=== PATIENT | male | born 1945 | race Caucasian/White ===

== ENCOUNTER → 2017-04-25 | Outpatient (CLI) | payer OTHER ==
[~2017-04-25] MED LIST: DENIES; PRED20TA PO
== END | disposition home or self-care (01) ==
LOC: C.LAB 11:08
PROVIDERS: ATTEND Urology
DX: R97.20 Elevated prostate specific antigen [PSA] (principal)

== ENCOUNTER 2019-06-13 07:21 | Inpatient (IN) ==
[2019-06-13] MEDS ORDERED: SODIUM CHLORIDE 0.9% 500 ML IV ONE (08:01)
[2019-06-13 08:39] LABS: Albumin Level 3.5 gm/dl (3.4-5.0); BUN Creatinine Ratio 19.3 (10-20); Calcium 8.9 mg/dl (8.5-10.1); Creatinine Clr Calc Pharmacy 80.1 ml/min; Est GFR (African American) 87.5; Est GFR (Non-African American) 75.5
[2019-06-13 08:42] LABS: Albumin Globulin Ratio 0.8 (0.9-2); Bilirubin,Total 0.9 mg/dl (0.2-1); Globulin 4.3 gm/dl (2.5-4.0); Total Protein 7.8 gm/dl (6.4-8.2)
[2019-06-13] MEDS ORDERED: IOVERSOL 100ml IV PRN (08:51)
--- NOTE | 2019-06-13 09:11 | CT Scan Report ---
CT soft tissue neck w con CT DOSE: 674.40 mGy.cm CLINICAL HISTORY: swelling TMJ R due to submental RIGHT-SIDED FACIAL SWELLING TECHNIQUE: Helical images were acquired during intravenous administration of 92 cc of Optiray 320. A dose lowering technique was utilized adhering to the principles of ALARA. COMPARISON STUDY: 09/19/2018 FINDINGS: The visualized portions of the lung apices are unremarkable. 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 The thyroid contains coarse calcificatio ns. There is only minimal right lobe thyroid tissue. Correlation with prior surgical history is advoc ated. No salivary gland masses are visualized. There are no pathologically enlarged cervical lymph nodes. No necrotic nodes are evident. There are no fluid collections suspicious for abscess. There is an element of narrowing of the oropharyngeal and supraglottic airway. There is mild edema within the uvula and epiglottis. There is diffuse retropharyngeal edema more pron ounced on the right. There is effacement of the right piriform sinus. Right-sided parapharyngeal brennon a extends superiorly to the level of the posterior tongue. IMPRESSION: 1. Apparent interval right lobe thyroidectomy 2. 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 Interval development of fracture pharyngeal and parapharyngeal edema extending to the level of the vocal cords to the base the tongue. In addition there is edema within the epiglottis and uvula. Ther e is effacement of the right piriform sinus, and secondary narrowing of the oropharyngeal and supragl ottic airway. No discrete abscess is visualized. Electronically signed by: Michael Michael M.D. 06/13/2019 9:10 AM
[2019-06-13 09:52] LABS: Agglutinated RBC 3+; Eosinophils # (auto) 0.22 K/uL (0-0.5); Eosinophils % (auto) 1.9 %; Hemoglobin 13.2 g/dL (14.0-18.0); Immature Granulocytes # (auto) 0.04 K/uL (0.00-0.02); Immature Granulocytes % (auto) 0.3 %; Lymphocytes # (auto) 1.72 K/uL (1.2-3.4); Lymphocytes % (auto) 14.6 %; Monocytes # (auto) 1.07 K/uL (0.11-0.59); Monocytes % (auto) 9.1 %; Neutrophils # (auto) 8.76 K/uL (1.4-6.5); Neutrophils % (auto) 74.1 %
[2019-06-13] MEDS ORDERED: DEXAMETHASONE SOD INJ 4 MG/ML VIAL IV STA (10:29)
[2019-06-13] MEDS ORDERED: AMPICILLIN/SULBACTAM SOD 3,000 MG in 0.9 % SODIUM CHLORIDE 100 ML IV STA (10:29)
[2019-06-13] MEDS ORDERED: CARBOHYDRATES FOR HYPOGLYCEMIA PO PRN (13:52)
[2019-06-13] MEDS ORDERED: MAGNESIUM HYDROXIDE SUSP 30 ML UDC PO PRN (13:52)
[2019-06-13] MEDS ORDERED: ACETAMINOPHEN 325 MG TAB PO PRN (13:52)
[2019-06-13] MEDS ORDERED: GLUCOSE 40% GEL 15 GM TUBE PO PRN (13:52)
[2019-06-13] MEDS ORDERED: ZOLPIDEM TARTRATE 5 MG TAB PO PRN (13:52)
[2019-06-13] MEDS ORDERED: DEXTROSE 50% 50 ML SYRINGE IV PRN (13:52)
[2019-06-13] MEDS ORDERED: GLUCOSE 10 TABS/TUBE PO PRN (13:52)
[2019-06-13] MEDS ORDERED: GLUCAGON FOR INJ 1 MG VIAL SQ PRN (13:52)
[2019-06-13] MEDS ORDERED: ALUMINUM/MAGNESIUM SUSP 30 ML UDC PO PRN (13:52)
[2019-06-13] MEDS ORDERED: ONDANSETRON INJ 2 MG/ML 2 ML VIAL IV PRN (13:52)
[2019-06-13] MEDS ORDERED: PIPERACILL/TAZOBAC CONSULT ACTIVE PRN (13:58)
--- NOTE | 2019-06-13 14:08 | History & Physical Report ---
Date of Service June 13, 2019 Assessment & Plan (1) Pharyngeal edema: Secondary to acute onset pharyngitis, without significant compromise to airway Dysphagia but no shortness of breath or difficulty breathing Able to swallow his saliva Admit to telemetry ENT consult appreciated, Dr. Gonzalez recommended Decadron IV, started 10 mg IV every 6 hours, also recommended Unasyn, unfortunately it is on the back ordered, so patient received Zosyn 3.25 gram IV every 6 hours Check blood culture, pharyngeal culture, antistreptolysin O, pro calcitonin Added lactobacillus to prevent C. difficile Added sliding scale insulin due to the large dose of steroids Added Protonix oral for GI prophylaxis Heparin subcu for DVT prophylaxis (2) Dysphasia: Keep n.p.o. for now (3) Essential hypertension: Continue blood pressure meds (4) Dyslipidemia: Continue statin (5) History of thyroid cancer: Status post removal of right lobe of thyroid about 3 months ago Continue Synthroid (6) Elevated PSA: Patient is aware and following up with his urologist Level has been mildly elevated, prostate biopsy was negative History of Present Illness Chief Complaint: Sore throat Primary Care Provider: Talita Liu DO 74 years old man with past medical history of essential hypertension, dyslipidemia and micro cancer and thyroid is status post right thyroid lobe thyroidectomy also has baseline mildly elevated PSA. Presented to the hospital with 3 days history of sore throat and some difficulty swallowing. Patient stated he has pain on the right side of his neck worsened by swallowing. Also had mild fever at home. In ED patient did have a CT scan that showed Interval development of fracture pharyngeal and parapharyngeal edema extending to the level of the vocal cords to the base the tongue. In addition there is edema within the epiglottis and uvula. There is effacement of the right piriform sinus, and secondary narrowing of the oropharyngeal and supraglottic airway. No discrete abscess is visualized. Patient will be admitted for further evaluation. Currently has no shortness of breath, protecting his airway well. Allergies Allergy/AdvReac Type Severity Reaction Status Date / Time [id number] Allergy Mild Uncoded 01/03/08 12:25 Home Medications Home Medications Medication Instructions Recorded Confirmed Type amlodipine 5 mg tablet 5 mg PO HS 03/29/19 06/13/19 History atorvastatin 20 mg tablet 20 mg PO HS 03/29/19 06/13/19 History levothyroxine 125 mcg tablet 125 mcg PO DAILY 03/29/19 06/13/19 History ascorbic acid (vitamin C) 500 mg PO BID 06/13/19 06/13/19 History calcium carbonate-vitamin D3 1 tab PO TID 06/13/19 06/13/19 History [Calcium 500 + D] cranberry 0 mg PO DAILY 06/13/19 06/13/19 History isknsabfneyn-kemeqlpg-duzwwb 1 tab PO HS 06/13/19 06/13/19 History [Multivitamin 50 Plus] [id number]-fish oil [Fish 1 cap PO DAILY 06/13/19 06/13/19 History Oil] Past Med/Surg History Medical History HLD (hyperlipidemia) Hypertension Hypothyroidism Family History Other Family history non-contributory Social History Preferred Language: Sinhala Communication Ability: Effective Critical Care Clinical Nurse Specialist Required: No Beliefs That Will Affect Care: None Current Living Situation: Spouse Other Information That Helps Us Care for You: No Feels Safe at Home: Yes Safety Concerns: Feels Safe At This Time Smoking Status: Former smoker Hx Alcohol Use: No Hx Substance Use: No Review of Systems Review of Systems: Review of system Constitutional: Positive for mild fever / no chills / no sweats / no weakness / no fatigue Eyes: no blurring of vision / no eye pain / no discharge / no redness ENT: Sore throat and pain in the right side of the neck Respiratory: no cough / no wheezing / no SOB / no hemoptysis Cardiovascular: no Chest pain / no lower extremity edema / no palpitation Abdomen: no pain / no nausea / no vomiting / no constipation Musculoskeletal: no joint pain / no muscle pain / no joint swelling Genitourinary: no dysuria / no incontinence / no urinary retention Neurologic: no focal weakness / no numbness/tingling / no ataxia Psychiatric: no depression symptoms / no anxiety / no insomnia Endocrine: no excessive thirst / no excessive urination Hematologic: no abnormal bleeding / no bruising / no LN swelling Skin: No rash / no pallor Physical Exam Physical Exam: Physical examination General patient appears to be comfortable, not in acute distress HEENT: Atraumatic , normocephalic /no jaundice /no pallor /anicteric /no dry mucous membrane /normal external ear inspection Neck: Tenderness on the right side of the neck and slight swelling, pharynx appears to be erythematous and swollen on the right side Heart: S1/S2 normal/regular rate and rhythm/no gallop /no rub /no murmur Lungs: Clear to auscultation bilaterally/normal chest with expansion/no rhonchi/no rales/no wheezing/no use of accessory muscles of respiration Abdomen: Soft/nontender/no guarding/no rebound/no organomegaly/no pulsatile mass Musculoskeletal: No swelling/no edema/no tenderness/normal range of motion Neuro exam: Awake alert oriented 3/cranial nerves II through XII appear to be intact/sensation intact/moves all extremities/no abnormal movements Psychiatric evaluation: No depressed mood/normal affect Skin: No rash on exposed skin area/no erythema Extremity: Normal pulse/no pitting edema/no clubbing or cyanosis Endocrine/lymphatic: No obvious lymphadenopathy /no lymphedema Results & Data Vital Signs (Past 12 Hours) Vital Signs Temp Pulse Pulse Resp BP BP Pulse Ox 06/13/19 13:00 72 20 111/62 96 06/13/19 12:00 72 18 126/55 L 96 06/13/19 11:00 82 18 131/79 95 06/13/19 10:00 72 18 118/65 95 06/13/19 09:00 71 18 131/76 97 06/13/19 07:27 36.8 C 88 18 139/91 97 Code Status & VTE Plan Code Status Based on discussion with patient he is full code VTE Prophylaxis Plan VTE Prophylaxis will be ordered: Yes PG Care Time/CCT Total # of Minutes Spent Total Time Spent with Patient: 35 minutes total time spent is greater than 50% in coordination of care (as documented) at patient's floor/unit and/or counseling patient/family discussion of care with nursing staff
[2019-06-13 14:53] LABS: Platelet Count 199 K/uL (130-400)
[2019-06-13 14:54] LABS: White Blood Count 11.81 K/uL (4.8-10.8)
[2019-06-13] MEDS ORDERED: INFLUENZA Vaccine HIGH DOSE 65+yrs 0.5 mL Syr IM ONE (15:00)
--- NOTE | 2019-06-13 15:08 | Consultation Report ---
DATE OF CONSULTATION: 06/13/2019 OTOLARYNGOLOGY, HEAD AND NECK SURGERY EMERGENCY ROOM CONSULTATION I have been asked by Dr. Cris Geller in the Emergency Room to evaluate this patient with parapharyngeal space infection. HISTORY OF PRESENT ILLNESS: The patient is a 74-year-old male with a several-day history of right-sided sore throat, which rapidly progressed and he developed right-sided facial and neck swelling, which prompted him to come to the Emergency Room today. He has a history of left thyroid lobectomy by at a [facility] photography assistant in 2011 and a subsequent right thyroid lobectomy by Dr. 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 The patient did well from that surgery and did not have any problems with his voice according to the patient's report. He denies any dental pain. He denies any referred otalgia. He does have some mild odynophagia and dysphagia, which has improved since he has gotten some IV steroids and antibiotics. He is afebrile. Blood was drawn, but the white blood cell count is still pending for some reason. He had a CT scan of the neck with IV contrast, which I reviewed and it shows residual left thyroid tissue that has substernal extension and displacement of the trachea to the right hand side. There is no right thyroid lobe. He has ehly-ab-ohotfdcw edema involving the right parapharyngeal space at the region of the oropharynx and extending to the hypopharynx. His uvula, right lateral pharyngeal wall, right side of the epiglottis and aryepiglottic fold, and right piriform sinus are all edematous. There is no discrete abscess. The edema seems to be somewhat watery. There is no neck lymphadenopathy. His glottic airway is widely patent. ALLERGIES: No known drug allergies. HOME MEDICATIONS: Include levothyroxine, Os-Anibal D, [place]-3 fatty acids, multivitamin, cranberry tablets, atorvastatin, vitamin C, and amlodipine. PAST MEDICAL HISTORY: Dyslipidemia, hypertension, postoperative hypothyroidism, postoperative hypocalcemia, arthritis. PAST SURGICAL HISTORY: As above as well as status post appendectomy. FAMILY HISTORY: Noncontributory. No bleeding disorders or malignant hyperthermia. SOCIAL HISTORY: The patient has a 5-pack-year smoking history but quit in 1968. He denies any alcohol abuse or illicit drug use. REVIEW OF SYSTEMS: The patient has some mild odynophagia and dysphagia. He has perhaps a mild change in his voice. He denies any referred otalgia. He denies any lightheadedness, shortness of breath, or chest pain. PHYSICAL EXAMINATION: GENERAL: This is an elderly white male in no acute distress with no stertor or stridor. He does have a mild hoarse voice. VITAL SIGNS: His temperature is 36.8 degrees Celsius. Oxygen saturation is 96% on room air. Respiratory rate is 18. Blood pressure is 115/88 and pulse is 79. ENT: Bilateral external auditory canals and tympanic membranes are clear. Nasal examination reveals a severe septal deviation to the left and right greater than left inferior turbinate hypertrophy. Oral cavity and oropharyngeal examination reveals no evidence of trismus. He has no pain to palpation of the maxillary or mandibular dentition on the right. He does have some mild uvular swelling as well as lateral pharyngeal wall swelling with no mucosal lesion or mass. He has no trismus. He has some poor remaining dentition but once again there is no tenderness to palpation of any of the dentition, and his gingival surfaces are normal. NECK: Examination reveals a hypertrophic thickened scar involving the neck at his previous thyroidectomy site. He does have some swelling superior to this incision that is primarily based on the right hand side and extends to the right parotid region. There is no overlying erythema, warmth, or fluctuance. He has no tenderness to palpation along the swelling. After the administration of topical lidocaine and Afrin to the right nasal cavity, flexible nasopharyngolaryngoscopy was performed, which reveals very mild edema involving the right lateral pharyngeal wall and extending down to the piriform sinus and aryepiglottic fold region. He has normal bilateral true vocal fold mobility to the midline with no mucosal lesions or masses. There is no pooling of secretions within the piriform sinuses. IMPRESSION AND RECOMMENDATIONS: A 74-year-old male with acute pharyngitis with parapharyngeal space edema but no evidence of abscess, phlegmon, or malignancy. Recommend IV antibiotics consisting of Unasyn 3 grams IV q.6 and Decadron 10 mg IV q.8 hours while he is hospitalized. He can then be discharged to home on Augmentin and an appropriate prednisone taper. Since there is no drainable abscess, I will sign off on this consultation, but if you need any further assistance with this patient, please do not hesitate to contact me.
[2019-06-13] MEDS ORDERED: PIPERACILLIN/TAZOBACTAM 3.375 GM in DEXTROSE 5% 100 ML IV ONE (15:15)
[2019-06-13] MEDS: NSS + 20MEQ KCL 20 MEQ/1,000 ML BAG IV SCH (16:10)
[2019-06-13] MEDS: DEXAMETHASONE SOD PHOSPHATE 10 MG in SYRINGE 0 ML IV SCH ×2 (16:10→21:05)
[2019-06-13] MEDS: PANTOprazole 40 MG TAB PO SCH (16:12)
[2019-06-13] MEDS: LACTOBACILLUS ACIDOPHILUS 1 GM PACK PO SCH (16:12)
[2019-06-13] MEDS: INSULIN ASPART 100 UNITS/ML 3 ML PEN SC SCH ×2 (18:13→21:20)
[2019-06-13] MEDS ORDERED: PIPERACILLIN/TAZOBACTAM 3.375 GM in DEXTROSE 5% 100 ML IV SCH (20:00)
[2019-06-13] MEDS ORDERED: ATORVASTATIN 20 MG TAB PO SCH (21:00)
[2019-06-13] MEDS ORDERED: AMLODIPINE BESYLATE 5 MG TAB PO SCH (21:00)
[2019-06-13] MEDS: AMPICILLIN/SULBACTAM SOD 3,000 MG in 0.9 % SODIUM CHLORIDE 100 ML IV SCH (21:01)
[2019-06-13] MEDS: HEPARIN SOD 5,000 UNIT/0.5 ML VIAL SQ SCH (21:05)
[2019-06-14] MEDS: AMPICILLIN/SULBACTAM SOD 3,000 MG in 0.9 % SODIUM CHLORIDE 100 ML IV SCH ×3 (02:11→14:57)
[2019-06-14] MEDS: DEXAMETHASONE SOD PHOSPHATE 10 MG in SYRINGE 0 ML IV SCH ×2 (02:55→12:12)
[2019-06-14] MEDS ORDERED: LEVOTHYROXINE SODIUM 125 MCG TABLET PO SCH (06:30)
[2019-06-14] MEDS: NSS + 20MEQ KCL 20 MEQ/1,000 ML BAG IV SCH (08:29)
[2019-06-14] MEDS: HEPARIN SOD 5,000 UNIT/0.5 ML VIAL SQ SCH (08:35)
[2019-06-14] MEDS: LACTOBACILLUS ACIDOPHILUS 1 GM PACK PO SCH ×2 (08:36→12:18)
[2019-06-14] MEDS: PANTOprazole 40 MG TAB PO SCH (08:36)
[2019-06-14] MEDS: INSULIN ASPART 100 UNITS/ML 3 ML PEN SC SCH ×2 (08:37→12:19)
[2019-06-14 15:49] VITALS: BP 142/82; TEMP 98.1; O2SAT 97
[2019-06-14 17:14] VITALS: PULSE 92
--- NOTE | 2019-06-15 22:24 | Emergency Department Note ---
Entered by Juan Lozano acting as a scribe for History of Present Illness General Chief complaint: Sore Throat Stated complaint: SWOLLEN,SORE THROAT,MOVED TO JAW/EAR,HARD TO TALK Time Seen by Provider: 06/13/19 07:42 Source: patient History of Present Illness Provider complaint: Sore throat Onset (ago): day(s) 3 Location: neck Pain Consistency: + constant Maximum Pain Intensity: 5 Current Pain Intensity: 5 Relieved By: + none Exacerbated By: + other (Closing mouth, swallowing) Associated symptoms: + other (Swelling); no fever/chills and no nausea/vomiting The patient is a 74 year old male who presents to the Emergency Room with complaints of a constant right sided sore throat that started 3 days ago. The patient rates his pain as a 5/10 and notes it hurts worse to swallow. The patient states that he has sinus congestion as well that he feels dripping down his throat. The patient reports that the day after his sore throat started he developed right sided jaw pain that tracks up to his right ear. The patient notes this pain is worse when he closes his mouth. The patient adds that he has had intermittent swelling of the right side of his neck and this morning he had swelling to the roof of his mouth and his tongue which impaired his speech. The patient mentioned that he had the right side of this thyroid removed in December. The patient denies any fevers, nausea, vomiting, or visual changes. The patient does admit to a remote smoking history. No recent dental procedures or infections. No recent sinus infections. Pt states swelling has improved slightly since earlier this am. No hx of salivary stones. Home Medications Home Medications Medication Instructions Recorded Confirmed Type amlodipine 5 mg tablet 5 mg PO HS 03/29/19 06/13/19 History atorvastatin 20 mg tablet 20 mg PO HS 03/29/19 06/13/19 History levothyroxine 125 mcg tablet 125 mcg PO DAILY 03/29/19 06/13/19 History Fish Oil 1 cap PO DAILY 06/13/19 06/13/19 History Multivitamin 50 Plus 1 tab PO HS 06/13/19 06/13/19 History ascorbic acid (vitamin C) 500 mg PO BID 06/13/19 06/13/19 History calcium carbonate-vitamin D3 1 tab PO TID 06/13/19 06/13/19 History [Calcium 500 + D] cranberry 0 mg PO DAILY 06/13/19 06/13/19 History Lactobacillus acidoph-L.bulgar 1 pkt PO TIDM 6 Days #12 ea 06/14/19 Rx [Floranex] amoxicillin-pot clavulanate 1 tab PO BID 6 Days #12 tab 06/14/19 Rx [Augmentin] prednisone See Rx Instructions .ROUTE 06/14/19 Rx .COMPLEX #18 tab Allergies Allergy/AdvReac Type Severity Reaction Status Date / Time [id number] Allergy Mild Uncoded 01/03/08 12:25 Past Med/Surg History Medical History HLD (hyperlipidemia) Hypertension Hypothyroidism Family History Other Family history non-contributory Social History Preferred Language: Turkmen Communication Ability: Effective Die Engraver Required: No Beliefs That Will Affect Care: None Current Living Situation: Spouse Feels Safe at Home: Yes Smoking Status: Former smoker Hx Alcohol Use: No Hx Substance Use: No Review of Systems See HPI for pertinent positives & negatives. and A total of 10 systems reviewed and were otherwise negative Physical Exam Vital Signs Vital Signs - 24 hr 06/13/19 07:27 06/13/19 09:00 06/13/19 10:00 Temperature 98.2 F Temperature Source Oral Pulse Rate 88 Pulse Rate [Apical] 71 72 Pulse Rhythm [Apical] Regular Regular Pulse Strength [Apical] Normal Respiratory Rate 18 18 18 Respiratory Effort / Characteristics Non-Labored Spontaneous Non-Labored Spontaneous Non-Labored Spontaneous Respiratory Depth Normal Normal Normal Respiratory Pattern Regular Regular Blood Pressure 139/91 Blood Pressure [Left Arm] 131/76 118/65 Blood Pressure Mean 107 Blood Pressure Mean [Left Arm] 94 82 Blood Pressure Position Sitting Pulse Oximetry 97 97 95 Oxygen Delivery Method Room Air Room Air Room Air Sepsis Recent Fever Within 48 Hours No Sepsis Action Taken by Nursing No Action Required 06/13/19 11:00 Temperature Temperature Source Pulse Rate Pulse Rate [Apical] 82 Pulse Rhythm [Apical] Regular Pulse Strength [Apical] Respiratory Rate 18 Respiratory Effort / Characteristics Non-Labored Spontaneous Respiratory Depth Normal Respiratory Pattern Regular Blood Pressure Blood Pressure [Left Arm] 131/79 Blood Pressure Mean Blood Pressure Mean [Left Arm] 96 Blood Pressure Position Pulse Oximetry 95 Oxygen Delivery Method Room Air Sepsis Recent Fever Within 48 Hours Sepsis Action Taken by Nursing GENERAL: alert, well appearing, well nourished, no distress, non-toxic HEAD: mild edema noted along right mandible and angle of mandible, no preauricular tenderness or edema EYE EXAM: normal conjunctiva, PERRL and EOM's grossly intact OROPHARYNX: Dry mucous membranes. Foul breath noted. Uvula is midline. Pain with palpation to the right TMJ. Mild fullness of the right face area around parotid gland. Edema to the right buccal mucosa. No fluctuance along gum line. No trismus. NECK: supple, no nuchal rigidity, no adenopathy, non-tender, no evidence of Ludwigs, no stridor. Well healed horizontal incision from thyroidectomy. LUNGS: Clear to auscultation. Normal chest wall mechanics, no w/r/r HEART: no murmurs, S1 normal and S2 normal ABDOMEN: abdomen soft, non-tender, normo-active bowel sounds, no masses, no rebound or guarding. BACK: Back is symmetrical on inspection and there is no deformity, no midline tenderness, no CVA tenderness. SKIN: no rashes and no bruising UPPER EXTREMITIES: upper extremities are grossly normal. FROM, nml pulses b/l. LOWER EXTREMITIES: No pitting edema. FROM, nml pulses b/l. NEURO EXAM: Normal sensorium, cranial nerves II-XII grossly intact, normal speech, no gross weakness of arms, no gross weakness of legs. Course Course 0753: Past medical records reviewed. The patient was evaluated in room B07, and a complete history and physical examination were performed. 1015: I reviewed the CT imaging with radiology. 1024: I updated the patient on the CT results. ENT has been paged. VS stable. Pt denies difficulty breathing or swallowing. STates still pain with swallowing. 1027: I spoke to Dr. Carlos SAUCEDO about the patient's case. He recommended starting Unasyn and 10mg of Decadron. He also suggested having him stay in the hospital for observation and IV antibiotics. 1038: I updated the patient on the discussion I had with ENT and the treatment plan that was formed. He is agreeable with the plan. 1055: I discussed the patient's case with Alanna Medina MARIA who is working under Dr. Nghia Bajwa. They agreed to accept the patient for further evaluation. 1133: The behavioral health case manager discovered that the patient has [facility] insurance so they cannot be admitted under the [facility]. The [facility] Hospitalist service has been paged. 1205: I spoke to Dr. Matt Sun [facility] about the patient's case. He is going to accept the patient for further evaluation. Consultations Consultation #1: I spoke to Dr. Carlos SAUCEDO about the patient's case. He recommended starting Unasyn and 10mg of Decadron. He also suggested having him stay in the hospital for observation and IV antibiotics. Time: 10:27 Consultation #2: I discussed the patient's case with Alanna SIFUENTES who is working under Dr. Nghia Bajwa. They agreed to accept the patient for further evaluation. Time: 10:55 Consultation #3: I spoke to Dr. Matt Sun [facility] about the patient's case. He is going to accept the patient for further evaluation. Time: 12:05 Administered Medications Discontinued Medications Amlodipine Besylate (Norvasc) 5 mg PO HS JACINDA Stop: 07/13/19 20:59 Last Admin: 06/13/19 21:05 Dose: 5 mg Documented by: [id number] Atorvastatin Calcium (Lipitor) 20 mg PO HS JACINDA Stop: 07/13/19 20:59 Last Admin: 06/13/19 21:05 Dose: 20 mg Documented by: [id number] Dexamethasone (Decadron) 10 mg IV NOW STA Stop: 06/13/19 10:30 Last Admin: 06/13/19 11:09 Dose: 10 mg Documented by: [id number] Heparin Sodium (Porcine) (Heparin Sodium (Porcine)) 5,000 units SQ Q12 JACINDA Stop: 07/13/19 20:59 Last Admin: 06/14/19 08:35 Dose: 5,000 units Documented by: [id number] Cosigned by: [id number] Admin: 06/13/19 21:05 Dose: 5,000 units Documented by: [id number] Cosigned by: [id number] Sodium Chloride (Nss) 500 mls @ 999 mls/hr IV .Q31M ONE Stop: 06/13/19 08:31 Last Infusion: 06/13/19 09:00 Dose: 0 mls/hr Documented by: [id number] Admin: 06/13/19 08:17 Dose: 999 mls/hr Documented by: [id number] Ampicillin Sodium/Sulbactam Sodium 3,000 mg/ Sodium Chloride 108 mls @ 200 mls/hr IV NOW STA; Protocol Stop: 06/13/19 11:01 Last Infusion: 06/13/19 11:43 Dose: 0 mls/hr Documented by: [id number] Admin: 06/13/19 11:10 Dose: 200 mls/hr Documented by: [id number] Dexamethasone Sodium Phosphate (10 mg/ Syringe) 2.5 mls @ 1 mls/min IV Q6H JACINDA Stop: 07/13/19 15:59 Last Admin: 06/14/19 12:12 Dose: 1 mls/min Documented by: [id number] Admin: 06/14/19 02:55 Dose: 1 mls/min Documented by: [id number] Admin: 06/13/19 21:05 Dose: 1 mls/min Documented by: [id number] Admin: 06/13/19 16:10 Dose: 1 mls/min Documented by: [id number] Potassium Chloride/Sodium Chloride (Normal Saline W/20 Meq Kcl) 20 meq in 1,000 mls @ 60 mls/hr IV .[id number] [facility] Stop: 07/13/19 15:29 Last Infusion: 06/14/19 15:08 Dose: 0 mls/hr Documented by: [id number] Admin: 06/14/19 08:29 Dose: 60 mls/hr Documented by: [id number] Infusion: 06/14/19 08:29 Dose: 60 mls/hr Documented by: [id number] Admin: 06/13/19 16:10 Dose: 60 mls/hr Documented by: [id number] Piperacillin Sod/Tazobactam (Sod 3.375 gm/ Dextrose) 115 mls @ 230 mls/hr IV NOW ONE; Protocol Stop: 06/13/19 15:44 Last Infusion: 06/13/19 16:41 Dose: 0 mls/hr Documented by: [id number] Admin: 06/13/19 16:11 Dose: 230 mls/hr Documented by: [id number] Ampicillin Sodium/Sulbactam Sodium 3,000 mg/ Sodium Chloride 108 mls @ 200 mls/hr IV Q6H JACINDA; Protocol Stop: 06/20/19 19:59 Last Infusion: 06/14/19 15:42 Dose: 0 mls/hr Documented by: [id number] Admin: 06/14/19 14:57 Dose: 200 mls/hr Documented by: [id number] Infusion: 06/14/19 09:08 Dose: 0 mls/hr Documented by: [id number] Admin: 06/14/19 08:35 Dose: 200 mls/hr Documented by: [id number] Infusion: 06/14/19 02:51 Dose: 0 mls/hr Documented by: [id number] Admin: 06/14/19 02:11 Dose: 200 mls/hr Documented by: [id number] Infusion: 06/13/19 21:34 Dose: 0 mls/hr Documented by: [id number] Admin: 06/13/19 21:01 Dose: 200 mls/hr Documented by: [id number] Influenza Virus Vaccine (Fluzone High-Dose Pf) 0.5 ml IM .ONCE ONE Stop: 06/13/19 15:01 Last Admin: 06/14/19 14:56 Dose: 0.5 ml Documented by: [id number] Insulin Aspart (Novolog Flexpen) 0 units SC ACHS JACINDA Stop: 07/13/19 16:29 Last Admin: 06/14/19 12:19 Dose: Not Given Documented by: [id number] Admin: 06/14/19 08:37 Dose: Not Given Documented by: [id number] Cosigned by: [id number] Admin: 06/13/19 21:20 Dose: Not Given Documented by: [id number] Cosigned by: [id number] Admin: 06/13/19 18:13 Dose: Not Given Documented by: [id number] Ioversol (Optiray 320 100ml) 92 ml IV ONCE PRN PRN Reason: Interaction Checking Stop: 06/17/19 08:50 Last Admin: 06/13/19 08:52 Dose: 92 ml Documented by: [id number] Lactobacillus Acidophilus (Floranex Granules/Powder Packet) 1 gm PO TIDM JACINDA Stop: 07/13/19 16:59 Last Admin: 06/14/19 12:18 Dose: 1 gm Documented by: [id number] Admin: 06/14/19 08:36 Dose: 1 gm Documented by: [id number] Admin: 06/13/19 16:12 Dose: 1 gm Documented by: [id number] Levothyroxine Sodium (Synthroid) 125 mcg PO DAILYBB [facility] Stop: 07/14/19 06:29 Last Admin: 06/14/19 06:31 Dose: 125 mcg Documented by: [id number] Pantoprazole Sodium (Protonix) 40 mg PO DAILY [facility] Stop: 07/13/19 13:59 Last Admin: 06/14/19 08:36 Dose: 40 mg Documented by: [id number] Admin: 06/13/19 16:12 Dose: 40 mg Documented by: [id number] Medical Decision Making Differential Diagnosis Differential diagnosis includes etiologies such as viral syndrome, tonsillitis, streptococcal pharyngitis, mononucleosis, peritonsillar abscess, retropharyngeal abscess, otitis, pneumonia, influenza, as well as others were entertained. Medical Records Attestation: I reviewed the patient's medical records. Home Medications Current Medication List: was personally reviewed by me Laboratory Data Attestation: I reviewed the patient's lab results. Result diagrams: 06/13/19 08:07 06/13/19 08:07 Lab Results 06/13/19 06/13/19 06/13/19 Range/Units 08:07 08:07 11:17 WBC 11.81 H (4.8-10.8) K/uL RBC TNP Hgb 13.2 L (14.0-18.0) g/dL Hct TNP MCV TNP MCH TNP MCHC TNP Plt Count 199 (130-400) K/uL Immature Gran % (Auto) 0.3 % Neut % (Auto) 74.1 % Lymph % (Auto) 14.6 % [place] % (Auto) 9.1 % Eos % (Auto) 1.9 % Baso % (Auto) 0.0 % Immature Gran # (Auto) 0.04 H (0.00-0.02) K/uL Neut # (Auto) 8.76 H (1.4-6.5) K/uL Lymph # (Auto) 1.72 (1.2-3.4) K/uL [place] # (Auto) 1.07 H (0.11-0.59) K/uL Eos # (Auto) 0.22 (0-0.5) K/uL Baso # (Auto) 0.00 (0-0.2) K/uL RBC Agglutinates 3+ Sodium 140 (136-145) mmol/L Potassium 4.0 (3.5-5.1) mmol/L Chloride 109 H (98-107) mmol/L Carbon Dioxide 25 (21-32) mmol/L Anion Gap 6.0 (3-11) BUN 19 H (7-18) mg/dl Creatinine 0.97 (0.6-1.4) mg/dl Est Cr Clr Drug Dosing 80.1 ml/min Est GFR ( Amer) 87.5 Est GFR (Non-Af Amer) 75.5 BUN/Creatinine Ratio 19.3 (10-20) Glucose 117 H (70-99) mg/dl Lactate (0.4-2.0) mmol/L Calcium 8.9 (8.5-10.1) mg/dl Total Bilirubin 0.9 (0.2-1) mg/dl AST 13 L (15-37) U/L ALT 19 (12-78) U/L Alkaline Phosphatase 71 (45-117) U/L Total Protein 7.8 (6.4-8.2) gm/dl Albumin 3.5 (3.4-5.0) gm/dl Globulin 4.3 H (2.5-4.0) gm/dl Albumin/Globulin Ratio 0.8 L (0.9-2) Procalcitonin < 0.05 (0-0.5) ng/ml TSH (0.300-4.500) uIu/ml Anti-Streptolysin Scrn (<200 IU/ml) IU/ml 06/13/19 06/13/19 06/13/19 Range/Units 11:17 11:17 11:17 WBC (4.8-10.8) K/uL RBC Hgb (14.0-18.0) g/dL Hct MCV MCH MCHC Plt Count (130-400) K/uL Immature Gran % (Auto) % Neut % (Auto) % Lymph % (Auto) % [place] % (Auto) % Eos % (Auto) % Baso % (Auto) % Immature Gran # (Auto) (0.00-0.02) K/uL Neut # (Auto) (1.4-6.5) K/uL Lymph # (Auto) (1.2-3.4) K/uL [place] # (Auto) (0.11-0.59) K/uL Eos # (Auto) (0-0.5) K/uL Baso # (Auto) (0-0.2) K/uL RBC Agglutinates Sodium (136-145) mmol/L Potassium (3.5-5.1) mmol/L Chloride (98-107) mmol/L Carbon Dioxide (21-32) mmol/L Anion Gap (3-11) BUN (7-18) mg/dl Creatinine (0.6-1.4) mg/dl Est Cr Clr Drug Dosing ml/min Est GFR ( Amer) Est GFR (Non-Af Amer) BUN/Creatinine Ratio (10-20) Glucose (70-99) mg/dl Lactate 1.0 (0.4-2.0) mmol/L Calcium (8.5-10.1) mg/dl Total Bilirubin (0.2-1) mg/dl AST (15-37) U/L ALT (12-78) U/L Alkaline Phosphatase (45-117) U/L Total Protein (6.4-8.2) gm/dl Albumin (3.4-5.0) gm/dl Globulin (2.5-4.0) gm/dl Albumin/Globulin Ratio (0.9-2) Procalcitonin (0-0.5) ng/ml TSH 0.483 (0.300-4.500) uIu/ml Anti-Streptolysin Scrn <200 IU/ml (<200 IU/ml) IU/ml Imaging Data Radiologist's Impression: Radiology results as stated below per my review and the radiologist's interpretation: CT soft tissue neck w con CT DOSE: 674.40 mGy.cm CLINICAL HISTORY: swelling TMJ R due to submental RIGHT-SIDED FACIAL SWELLING TECHNIQUE: Helical images were acquired during intravenous administration of 92 cc of Optiray 320. A dose lowering technique was utilized adhering to the principles of ALARA. COMPARISON STUDY: 09/19/2018 FINDINGS: The visualized portions of the lung apices are unremarkable. 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 The thyroid contains coarse calcifications. There is only minimal right lobe thyroid tissue. Correlation with prior surgical history is advocated. No salivary gland masses are visualized. There are no pathologically enlarged cervical lymph nodes. No necrotic nodes are evident. There are no fluid collections suspicious for abscess. There is an element of narrowing of the oropharyngeal and supraglottic airway. There is mild edema within the uvula and epiglottis. There is diffuse retropharyngeal edema more pronounced on the right. There is effacement of the right piriform sinus. Right-sided parapharyngeal edema extends superiorly to the level of the posterior tongue. IMPRESSION: 1. Apparent interval right lobe thyroidectomy 2. 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 Interval development of fracture pharyngeal and parapharyngeal edema extending to the level of the vocal cords to the base the tongue. In addition there is edema within the epiglottis and uvula. There is effacement of the right piriform sinus, and secondary narrowing of the oropharyngeal and supraglottic airway. No discrete abscess is visualized. Electronically signed by: Michael Michael M.D. 06/13/2019 9:10 AM Blood Pressure Blood Pressure Findings: Normal blood pressure MDM Narrative Pt here with dysphagia, dysphonia, facial swelling, and concern for evolving deep space infection. No definite abscess seen on CT, however due to proximity to trachea/epiglottits and surrounding edema, I feel pt needed additional close inpatient monitoring as an airway precaution. VS stable. I do not suspect bacteremia/sepsis. No evidence of parotitis or salivary stone. Strep negative. Unclear etiology of infection. No recent dental procedure. Right thyroidectomy previously. Pt aware of all results and in agreement with plan. Impression & Plan Facial swelling, Pharyngeal edema, Dysphagia Discharge Plan Visit Data *Final* Discharge Date/Time: 06/13/19 14:43 Chief Complaint: Sore Throat Stated Complaint: SWOLLEN,SORE THROAT,MOVED TO JAW/EAR,HARD TO TALK ED Provider: rCis Geller Discharge Problem: Facial swelling, Pharyngeal edema, Dysphagia Patient Disposition: Admitted As Inpatient Discharge Instructions Interventions: ED Discharge Assessment Last Done: 06/13/19 14:43 Discharge Problem: Dysphagia Qualifiers: Dysphagia type: unspecified Qualified Code(s): R13.10 - Dysphagia, unspecified The scribe's documentation has been prepared under my direction and personally reviewed by me in its entirety. I confirm that the note above accurately reflects all work, treatment, procedures, and medical decision making performed by me.
--- NOTE | 2019-06-17 16:57 | Discharge Summary ---
Date of Service June 14, 2019 Admission HPI Per Admitting Provider 74 years old man with past medical history of essential hypertension, dyslipidemia and micro cancer and thyroid is status post right thyroid lobe thyroidectomy also has baseline mildly elevated PSA. Presented to the hospital with 3 days history of sore throat and some difficulty swallowing. Patient stated he has pain on the right side of his neck worsened by swallowing. Also had mild fever at home. In ED patient did have a CT scan that showed Interval development of fracture pharyngeal and parapharyngeal edema extending to the level of the vocal cords to the base the tongue. In addition there is edema wit hin the epiglottis and uvula. There is effacement of the right piriform sinus, and secondary narrowing of the oropharyngeal and supraglottic airway. No discrete abscess is visualized. Patient will be admitted for further evaluation. Currently has no shortness of breath, protecting his airway well. Admission Exam Per Admitting Provider General patient appears to be comfortable, not in acute distress HEENT: Atraumatic , normocephalic /no jaundice /no pallor /anicteric /no dry mucous membrane /normal external ear inspection Neck: Tenderness on the right side of the neck and slight swelling, pharynx appears to be erythematous and swollen on the right side Heart: S1/S2 normal/regular rate and rhythm/no gallop /no rub /no murmur Lungs: Clear to auscultation bilaterally/normal chest with expansion/no rhonchi/no rales/no wheezing/no use of accessory muscles of respiration Abdomen: Soft/nontender/no guarding/no rebound/no organomegaly/no pulsatile mass Musculoskeletal: No swelling/no edema/no tenderness/normal range of motion Neuro exam: Awake alert oriented 3/cranial nerves II through XII appear to be intact/sensation intact/moves all extremities/no abnormal movements Psychiatric evaluation: No depressed mood/normal affect Skin: No rash on exposed skin area/no erythema Extremity: Normal pulse/no pitting edema/no clubbing or cyanosis Endocrine/lymphatic: No obvious lymphadenopathy /no lymphedema Principal Diagnosis Acute pharyngitis with parapharyngeal edema causing secondary narrowing of oropharyngeal and subglottic airways (no abscess) Discharge Exam Constitutional well developed, well nourished and + obese; no acute distress Eyes + anicteric sclerae, PERRL and EOM intact bilaterally (no diplopia) ENMT external ear and nose normal, oropharynx normal Throat: no posterior oropharynx abnormality, no tonsil abnormality and no peritonsillar mass Neck trachea midline, + neck tender (right sided around proximal trachea), + short neck and + thick neck; no anterior neck swelling and no nuchal rigidity Respiratory normal respiratory effort, lungs clear to auscultation no stridor Auscultation: no wheezes Cardiovascular RRR, no murmur, no edema Psychiatric A+Ox3, euthymic affect Discharge Data Allergies Allergy/AdvReac Type Severity Reaction Status Date / Time [id number] Allergy Mild Uncoded 01/03/08 12:25 Consultations 06/13/19 11:45 ED Decision to Admit Stat 06/13/19 13:52 Consult Physician Stat Ordered Studies 06/13/19 08:01 CT soft tissue neck w con Stat Hospital Course (1) Pharyngeal edema: Thompson Nguyen is a 74 year old male admitted overnight to [facility] from June 13 to 2018 due to sore throat, neck swelling and difficulty swallowing. He was diagnosed with acute pharyngitis with parapharyngeal edema causing secondary narrowing of the oropharyngeal and subglottic airways. No abscess was noted on imaging. He was seen by Dr. Gonzalez (ENT physician) advised for tapering course of steroids and antibiotics. He had no fevers and chills, stridor and was eating and drinking normally therefore determined to be safe for discharge the following day and will be discharged with augmentin and prednisone taper. Blood cultures are negative at 24 hours and he should follow up with his PCP for final results of these. (2) Dysphasia: (3) Essential hypertension: (4) Dyslipidemia: (5) History of thyroid cancer: (6) Elevated PSA: Total Time Total Time Spent Total Time Spent (In Minutes): 45 Total Time Includes: Examination of the Patient, Discharge Planning and Medication Reconciliation Discharge Plan Discharge Items Patient Disposition: Home - Self-Care Reason For Visit: Sore throat and difficulty swallowing Discharge Diagnosis: Acute pharyngitis with parapharyngeal edema causing secondary narrowing of oropharyngeal and subglottic airways Activity: Resume your previous activity Non-emergency contact: Primary Care Provider Call non-emergency contact if: you have any medication questions, your symptoms worsen and your temperature is above 101 Follow-up/Referrals: Talita Liu DO [Primary Care Provider] - Diet: Regular Addtl Attending Provider Instructions: You were admitted overnight to [facility] from June 13 to 2018 due to sore throat and difficulty swallowing. He was diagnosed with acute pharyngitis with parapharyngeal edema causing secondary narrowing of the oropharyngeal and subglottic airways. No abscess was noted on imaging. You are reviewed by Dr. Gonzalez (ENT physician) advised for steroids and antibiotics. Please continue prednisone and Augmentin as prescribed and follow- up with your primary care physician. Pending Studies at Discharge: Yes (final blood cultures) Stand-Alone Forms: My [facility], Smoking Cessation Medications and DC Order Prescriptions: New Floranex 100 million cell Granules In Packet 1 pkt PO TIDM 6 Days Qty: 12 RF: 0 prednisone 20 mg tablet See Rx Instructions .ROUTE .COMPLEX Qty: 18 RF: 0 amoxicillin-pot clavulanate [Augmentin] 875-125 mg tablet 1 tab PO BID 6 Days Qty: 12 RF: 0 Continued levothyroxine [Synthroid] 125 mcg tablet 125 mcg PO DAILY RF: 0 amlodipine 5 mg tablet 5 mg PO HS RF: 0 atorvastatin 20 mg tablet 20 mg PO HS RF: 0 ascorbic acid (vitamin C) 500 mg Tablet 500 mg PO BID RF: 0 cranberry 400 mg Capsule 0 mg PO DAILY RF: 0 Multivitamin 50 Plus Tablet 1 tab PO HS RF: 0 calcium carbonate-vitamin D3 [Calcium 500 + D] 500 mg(1,250mg) -200 unit Tablet 1 tab PO TID RF: 0 Fish Oil 120 mg-180 mg- 60 mg-1,200 mg Capsule,Delayed Release(Dr/Ec) 1 cap PO DAILY RF: 0 Discharge Orders: Discharge Order (Routine); Ordered 06/14/19 Ordered By: Matt Pagan Admission Data Admit Date/Time: 06/13/19 13:55 Attending Provider: Matt Pagan Admit Provider: April Lock Primary Care Provider: Talita Liu Other Providers: April Lock ; Lance Gonzalez Other Interventions: Discharge Summary Assessment (RN) Last Done: 06/14/19 17:12 DC Date/Time DO NOT enter until pt leaves facility: 06/14/19 17:52
== END 2019-06-14 17:52 | disposition home or self-care (01) | DRG 153 ==
LOC: ED 07:21 → SUATTDRO 13:55 → 2S 13:55